=== PATIENT | male | born 1940 | race Asian ===

== ENCOUNTER → 2017-12-27 | Outpatient (CLI) | payer MEDICARE, BC | END | disposition home or self-care (01) | LOC: HKI 11:11 | DX: M25.561 Pain in right knee (principal); R20.0 Anesthesia of skin | CPT/HCPCS: 73562; 73562-RT ==

== ENCOUNTER 2018-02-07 12:06 | Inpatient (IN) | payer MEDICARE, BC ==
[2018-02-07] MEDS ORDERED: PROPOFOL 20 ML (12:32)
[2018-02-07] MEDS ORDERED: ONDANSETRON 4 MG INJ (12:32)
[2018-02-07] MEDS ORDERED: NEOSTIGMINE 3 MG/3 ML SYRINGE (12:32)
[2018-02-07] MEDS ORDERED: MIDAZOLAM 1 MG/ML 2 ML INJ (12:32)
[2018-02-07] MEDS ORDERED: DEXAMETHASONE 4 MG/ML 1 ML INJ (12:32)
[2018-02-07] MEDS ORDERED: GLYCOPYRROLATE 0.4 MG INJ (12:32)
[2018-02-07] MEDS ORDERED: CEFAZOLIN 1 GM INJ (12:32)
[2018-02-07] MEDS ORDERED: ROCURONIUM 50 MG INJ ×2 (12:32→14:30)
[2018-02-07] MEDS ORDERED: D5W-0.45 NACL + KCL 20 MEQ 1,000 ML IV (12:46)
[2018-02-07] MEDS: VANCOMYCIN 1 GM (PMX) 250 ML IVPB (13:00)
[2018-02-07] MEDS ORDERED: NALOXONE (0.4 MG/ML) INJ IV (13:00)
[2018-02-07] MEDS ORDERED: HYDROmorphONE 0.5 MG/0.5 ML SYG IV (13:00)
[2018-02-07] MEDS ORDERED: AL HYDROX/MG HYDROX/SIMETH 30 ML CUP PO (13:00)
[2018-02-07] MEDS ORDERED: BISACODYL 10 MG SUPP PR (13:00)
[2018-02-07] MEDS ORDERED: ONDANSETRON 4 MG INJ IV (13:00)
[2018-02-07] MEDS ORDERED: ZOLPIDEM 5 MG TAB PO (13:00)
[2018-02-07] MEDS ORDERED: DIPHENHYDRAMINE 50 MG INJ IV ×2 (13:00→15:00)
[2018-02-07] MEDS: VANCOMYCIN 1 GM 250 ML IVPB (13:09)
[2018-02-07] MEDS: POLYMYXIN/BACITRACIN 1L IRRIG (14:46)
[2018-02-07] MEDS: THROMBIN 5000 UNIT VIAL (14:46)
[2018-02-07] MEDS: SURGIFOAM POWDER 1 GM KIT (14:47)
[2018-02-07] MEDS ORDERED: SUGAMMADEX SODIUM 200 MG/2 ML VIAL IV (14:59)
[2018-02-07] MEDS ORDERED: EPHEDrine SULFATE 50 MG/5 ML SYG IV (15:00)
[2018-02-07] MEDS ORDERED: FENTAnyl 50 MCG/ML VIAL IV (15:00)
[2018-02-07] MEDS ORDERED: MEPERIDINE 25 MG INJ IV (15:00)
[2018-02-07] MEDS ORDERED: ALBUTEROL 0.083% (NEB) 2.5 MG/3 ML AMP HHN (15:00)
[2018-02-07] MEDS ORDERED: TRIMETHOBENZAMIDE 100 MG/ML VIAL IM (15:00)
[2018-02-07] MEDS ORDERED: IPRATROPIUM (NEB) 0.5 MG/2.5 ML AMP HHN (15:00)
[2018-02-07] MEDS ORDERED: LABETALOL HCL 20MG INJ IV (15:00)
[2018-02-07] MEDS ORDERED: HYDROmorphONE (0.2 MG/ML) 10ML SYG IV (15:00)
[2018-02-07] MEDS ORDERED: hydrALAzine 20 MG INJ IV (15:00)
[2018-02-07] MEDS ORDERED: MIDAZOLAM 1 MG/ML 2 ML INJ IV (15:00)
[2018-02-07] MEDS ORDERED: 1/2 NS + KCL 20 MEQ 1,000 ML IV (15:32)
[2018-02-07] MEDS: CA CHLORIDE 10% 10 ML SYRINGE (15:39)
[2018-02-07] MEDS: HYDROmorphONE 0.2 MG/ML PCA IV ×2 (15:57→20:23)
[2018-02-07] MEDS: FENTAnyl 50 MCG/ML VIAL IV ×2 (16:03→16:10)
[2018-02-07] MEDS: HYDROmorphONE (0.2 MG/ML) 10ML SYG IV ×2 (16:04→16:11)
[2018-02-07] MEDS: ONDANSETRON 4 MG INJ IV (17:54)
[2018-02-07] MEDS ORDERED: DEXTROSE 50% 50 ML SYRINGE IV ×2 (18:30)
[2018-02-07] MEDS ORDERED: GLUCAGON 1 MG INJ IM (18:30)
[2018-02-07] MEDS ORDERED: GLUCOSE GEL 15 GRAM TUBE BUCCAL (18:30)
[2018-02-07] MEDS ORDERED: GLUCOSE GEL 15 GRAM TUBE PO ×2 (18:30)
[2018-02-07] MEDS: TRIMETHOBENZAMIDE 100 MG/ML VIAL IM (18:31)
[2018-02-07] MEDS: SOD CHLORIDE 0.45% 1,000 ML IV (18:31)
[2018-02-07] MEDS: ALBUTEROL/IPRATROPIUM (NEB) 3 ML AMP HHN (19:19)
[2018-02-07] MEDS: DOCUSATE SODIUM 100 MG CAP PO (21:00)
[2018-02-07] MEDS: ATENOLOL 50 MG TAB PO (22:38)
[2018-02-07] MEDS: INSULIN ASPART [NOVOLOG] 3 ML PEN SC (22:43)
[2018-02-08] MEDS: VANCOMYCIN 1 GM (PMX) 250 ML IVPB (01:33)
[2018-02-08] MEDS: LACTATED RINGER'S 1,000 ML IV* (02:24)
[2018-02-08] MEDS: ACCUCHECK AT 2AM (Patients on SS coverage) XX (02:24)
[2018-02-08] MEDS: HYDROmorphONE 0.2 MG/ML PCA IV (04:53)
[2018-02-08] MEDS: SOD CHLORIDE 0.45% 1,000 ML IV ×2 (04:56→15:18)
[2018-02-08 05:11] LABS: ADD MAN DIFF? NO
[2018-02-08 05:14] LABS: WHITE BLOOD COUNT 8.9 10^3/ul (4.8-10.8)
[2018-02-08 05:15] LABS: ABNORMAL IP MESSAGE 1; BASOPHILS % 0.1 % (0.0-2.0); HEMATOCRIT 29.8 % (42.0-52.0); HEMOGLOBIN 9.6 g/dl (14.0-18.0); LYMPHOCYTES # 0.2 10^3/ul (0.8-2.9); LYMPHOCYTES % 2.2 % (15.0-51.0); MEAN CORPUSCULAR HEMOGLOBIN 32.2 pg (29.0-33.0); MEAN CORPUSCULAR HGB CONC 32.2 g/dl (32.0-37.0); MEAN PLATELET VOLUME 9.2 fl (7.4-10.4); MONOCYTE # 0.5 10^3/ul (0.3-0.9); MONOCYTES % 5.2 % (0.0-11.0); NEUTROPHIL # 8.2 10^3/ul (1.6-7.5); NEUTROPHILS % 91.7 % (39.0-77.0); PLATELET COUNT 222 10^3/UL (140-415); POSITIVE DIFF @See below; RED BLOOD COUNT 2.98 10^6/ul (4.70-6.10); RED CELL DISTRIBUTION WIDTH 14.2 % (11.5-14.5)
[2018-02-08 05:38] LABS: IRON 46 ug/dl (35-150)
[2018-02-08 05:48] LABS: % IRON SATURATION 15 % SAT (22-52); TOTAL IRON BINDING CAPACITY 306 ug/dl (241-421)
[2018-02-08 06:02] LABS: ANION GAP 17 (8-16); BLOOD UREA NITROGEN 22 mg/dl (7-20); CALCIUM 8.6 mg/dl (8.4-10.2); CARBON DIOXIDE 20 mmol/L (21-31); CHLORIDE 114 mmol/L (97-110); CREATININE 0.88 mg/dl (0.61-1.24); GLUCOSE 210 mg/dl (70-220); MAGNESIUM 1.4 mg/dl (1.7-2.5); POTASSIUM 5.5 mmol/L (3.5-5.1); SODIUM 145 mmol/L (135-144)
[2018-02-08 06:15] LABS: FERRITIN 27.8 ng/ml (11.1-264.0)
[2018-02-08] MEDS: PANTOPRAZOLE 40 MG INJ IV (06:27)
[2018-02-08] MEDS: ALBUTEROL/IPRATROPIUM (NEB) 3 ML AMP HHN ×4 (08:00→21:13)
[2018-02-08] MEDS: ISOSORBIDE MONONITRATE(SR)60 MG TAB PO (08:35)
[2018-02-08] MEDS: DOCUSATE SODIUM 100 MG CAP PO ×2 (08:47→22:01)
[2018-02-08] MEDS: INSULIN ASPART [NOVOLOG] 3 ML PEN SC ×4 (09:21→21:41)
[2018-02-08] MEDS: MAGNESIUM SULFATE 2 GM/50 ML 50 ML IVPB (09:58)
[2018-02-08] MEDS: DIAZEPAM 5 MG TAB PO ×2 (11:01→16:33)
[2018-02-08] MEDS: HYDROCHLOROTHIAZIDE 12.5 MG CAP PO (15:00)
[2018-02-08] MEDS: ATENOLOL 25 MG TAB PO (15:26)
[2018-02-08] MEDS: SOD FERRIC GLUC COMPLX 125 MG in SOD CHLORIDE 0.9% 100 ML IVPB (17:01)
[2018-02-08] MEDS: ATENOLOL 50 MG TAB PO (21:57)
[2018-02-09] MEDS: DEXAMETHASONE 10 MG/ML 1 ML INJ IV (01:40)
[2018-02-09] MEDS: ACCUCHECK AT 2AM (Patients on SS coverage) XX (01:42)
[2018-02-09] MEDS: HYDROmorphONE 0.2 MG/ML PCA IV (01:54)
[2018-02-09 05:45] LABS: ADD MAN DIFF? NO
[2018-02-09 05:50] LABS: BASOPHILS % 0.2 % (0.0-2.0); HEMATOCRIT 31.3 % (42.0-52.0); HEMOGLOBIN 10.3 g/dl (14.0-18.0); LYMPHOCYTES # 0.7 10^3/ul (0.8-2.9); LYMPHOCYTES % 5.7 % (15.0-51.0); MEAN CORPUSCULAR HEMOGLOBIN 32.3 pg (29.0-33.0); MEAN CORPUSCULAR HGB CONC 32.9 g/dl (32.0-37.0); MEAN CORPUSCULAR VOLUME 98.1 fl (82.0-101.0); MEAN PLATELET VOLUME 9.6 fl (7.4-10.4); MONOCYTE # 0.5 10^3/ul (0.3-0.9); MONOCYTES % 4.3 % (0.0-11.0); NEUTROPHIL # 10.6 10^3/ul (1.6-7.5); NEUTROPHILS % 88.8 % (39.0-77.0); PLATELET COUNT 235 10^3/UL (140-415); RED BLOOD COUNT 3.19 10^6/ul (4.70-6.10); RED CELL DISTRIBUTION WIDTH 14.3 % (11.5-14.5)
[2018-02-09 06:09] LABS: ALANINE AMINOTRANSFERASE 20 IU/L (13-69); ALBUMIN 3.4 g/dl (3.3-4.9); ALKALINE PHOSPHATASE 76 IU/L (42-121); ANION GAP 14 (8-16); ASPARTATE AMINO TRANSFERASE 21 IU/L (15-46); BILIRUBIN,INDIRECT 0.3 mg/dl (0-1.1); BILIRUBIN,TOTAL 0.3 mg/dl (0.2-1.3); BLOOD UREA NITROGEN 19 mg/dl (7-20); CALCIUM 9.2 mg/dl (8.4-10.2); CARBON DIOXIDE 23 mmol/L (21-31); CHLORIDE 110 mmol/L (97-110); CREATININE 0.92 mg/dl (0.61-1.24); GLUCOSE 241 mg/dl (70-220); MAGNESIUM 1.8 mg/dl (1.7-2.5); POTASSIUM 5.3 mmol/L (3.5-5.1); SODIUM 142 mmol/L (135-144)
[2018-02-09] MEDS: PANTOPRAZOLE 40 MG INJ IV (06:22)
[2018-02-09 06:28] LABS: ADD UMIC YES; UR ASCORBIC ACID NEGATIVE (NEGATIVE); UR BILIRUBIN (Dip) NEGATIVE (NEGATIVE); UR BLOOD (Dip) 2+ mg/dL (NEGATIVE); UR CLARITY CLEAR (CLEAR); UR COLOR STRAW (YELLOW); UR GLUCOSE (Dip) 2+ mg/dL (NEGATIVE); UR KETONES (Dip) NEGATIVE (NEGATIVE); UR LEUKOCYTE ESTERASE (Dip) NEGATIVE Leu/ul (NEGATIVE); UR NITRITE (Dip) NEGATIVE (NEGATIVE); UR RBC 3 /HPF (0-5); UR TOTAL PROTEIN (Dip) NEGATIVE (NEGATIVE); UR UROBILINOGEN (Dip) NEGATIVE (NEGATIVE); UR WBC 0 /HPF (0-5)
[2018-02-09] MEDS: ACETAMINOPHEN 325 MG TAB PO (06:40)
[2018-02-09] MEDS: ALBUTEROL/IPRATROPIUM (NEB) 3 ML AMP HHN ×4 (08:00→20:00)
[2018-02-09] MEDS ORDERED: LINAGLIPTIN 5 MG TABLET PO (09:00)
[2018-02-09] MEDS ORDERED: VALSARTAN 80 MG TAB PO (09:00)
[2018-02-09] MEDS: metFORMIN 500 MG TAB PO ×3 (09:20→21:34)
[2018-02-09] MEDS: DOCUSATE SODIUM 100 MG CAP PO ×2 (09:20→21:16)
[2018-02-09] MEDS: ISOSORBIDE MONONITRATE(SR)60 MG TAB PO (09:23)
[2018-02-09] MEDS: HYDROCHLOROTHIAZIDE 25 MG TAB PO (09:24)
[2018-02-09] MEDS: INSULIN ASPART [NOVOLOG] 3 ML PEN SC ×4 (09:30→22:45)
[2018-02-09] MEDS: OXYCODONE/ACETAMINOPHEN (10/325) TAB PO ×4 (09:33→22:16)
[2018-02-09] MEDS: DIAZEPAM 5 MG TAB PO (12:34)
[2018-02-09] MEDS: ATENOLOL 25 MG TAB PO (12:46)
[2018-02-09] MEDS: SOD FERRIC GLUC COMPLX 125 MG in SOD CHLORIDE 0.9% 100 ML IVPB (17:28)
[2018-02-09] MEDS ORDERED: ATENOLOL 25 MG TAB PO (21:00)
[2018-02-09] MEDS: ATENOLOL 50 MG TAB PO (21:16)
[2018-02-09] MEDS: VALSARTAN 80 MG TAB PO (21:16)
[2018-02-10] MEDS: ACCUCHECK AT 2AM (Patients on SS coverage) XX (02:42)
[2018-02-10] MEDS: PANTOPRAZOLE 40 MG INJ IV (06:14)
[2018-02-10] MEDS: OXYCODONE/ACETAMINOPHEN (10/325) TAB PO (07:37)
[2018-02-10] MEDS: ISOSORBIDE MONONITRATE(SR)60 MG TAB PO (07:38)
[2018-02-10] MEDS: ATENOLOL 25 MG TAB PO (07:39)
[2018-02-10] MEDS: INSULIN ASPART [NOVOLOG] 3 ML PEN SC (07:50)
[2018-02-10] MEDS: ALBUTEROL/IPRATROPIUM (NEB) 3 ML AMP HHN (08:00)
[2018-02-10] MEDS: metFORMIN 500 MG TAB PO (09:12)
[2018-02-10] MEDS: DOCUSATE SODIUM 100 MG CAP PO (09:12)
[2018-02-10] MEDS: HYDROCHLOROTHIAZIDE 25 MG TAB PO (09:14)
== END 2018-02-10 11:16 | disposition home or self-care (01) | DRG 30 ==
LOC: REC 12:06 → MS1 18:00 → SDS 12:06 → MS1 18:00 → SDS 02-08 12:00 → MS1 02-08 12:00
PROVIDERS: Specialist
PROC: 00NY0ZZ Release Lumbar Spinal Cord, Open Approach (ICD-10-PCS; principal; 2018-02-07 13:39)
PROC: 0SB20ZZ Excision of Lumbar Vertebral Disc, Open Approach (ICD-10-PCS; 2018-02-07 13:39)
PROC: 07DR3ZZ Extraction of Iliac Bone Marrow, Percutaneous Approach (ICD-10-PCS; 2018-02-07 13:39)
PROC: 4A11X4G Monitoring of Peripheral Nervous Electrical Activity, Intraoperative, External Approach (ICD-10-PCS; 2018-02-07 13:39)
DX: G96.19 Other disorders of meninges, not elsewhere classified (principal); M51.16 Intervertebral disc disorders with radiculopathy, lumbar region; R33.9 Retention of urine, unspecified; E11.8 Type 2 diabetes mellitus with unspecified complications; M48.061 Spinal stenosis, lumbar region without neurogenic claudication; I10 Essential (primary) hypertension; E11.9 Type 2 diabetes mellitus without complications; D50.9 Iron deficiency anemia, unspecified; I25.10 Atherosclerotic heart disease of native coronary artery without angina pectoris; E78.5 Hyperlipidemia, unspecified; Z96.651 Presence of right artificial knee joint; Z95.5 Presence of coronary angioplasty implant and graft; Z79.84 Long term (current) use of oral hypoglycemic drugs
CPT/HCPCS: 72020; 80048; 80053; 81001; 82728; 82962; 83540; 83735; 85025; 86999; 87086; 88304; 97116; 97162; 97530